=== PATIENT | male | born 1960 | race Caucasian/White ===

== ENCOUNTER 2019-07-06 09:54 | Inpatient (IN) | payer SELFPAY ==
--- NOTE | 2019-07-06 10:13 | ED Physician Documentation ---
General Adult - HISTORIAN Historian: patient - HPI Stated Complaint: cough and sore throat Chief Complaint: General Adult Onset: days ago Timing: still present Severity: moderate Further Comments: yes (Pt is a 58 yo male from [place] who is accompanying a cdl flatbed truck driver. He presents with c/o cough and sore throat for several days, and is sob. Pt has had some slight chest pain. Pt has COPD and CHF, and has been hospitalized in the past for 4 or 5 days at time due to exacerbations of CHF/COPD. Pt is on a number of meds, including Spirva. He has been out of his Lasix for 2 weeks. He says that he takes 40 mg daily with prn doses up to 3 total doses daily. Pt had an GA more than a decade ago. He says that he did not have a stent. Pt has an implanted defirillator, he says. He cannot give a good history of his cardiac issues.) - ROS CONST: weakness EYES/ENT: sore throat CVS/RESP: chest pain, shortness of breath, cough GI/: none MS/SKIN/LYMPH: none - PAST HX Past History: COPD, CHF, other (GA in (no stent); defibrillator) Surgeries/Procedures: other (implanted defibrillator) Allergies/Adverse Reactions: Allergies Allergy/AdvReac Type Severity Reaction Status Date / Time Penicillins Allergy Verified 07/06/19 10:46 Home Medications: Ambulatory Orders Medication Instructions Recorded Albuterol Sulfate [Proair Hfa] 8.5 gm IH TID 07/06/19 Aspirin [Roland] 325 mg PO DAILY 07/06/19 Atorvastatin Calcium 40 mg PO DAILY 07/06/19 Bupropion HCl [Bupropion Xl] 150 mg PO BID 07/06/19 Famotidine [Pepcid] 1 tab PO BID 07/06/19 Fluticasone Propion/Salmeterol 1 each INH DAILY 07/06/19 [Advair 250-50 Diskus] Metoprolol Tartrate [Lopressor] 25 mg PO DAILY 07/06/19 Potassium Chloride [Klor-Con 10] 1 tab PO DAILY 07/06/19 Spironolactone 0.5 tab PO DAILY 07/06/19 Tiotropium [place] [Spiriva] 1 inh INH DAILY 07/06/19 - SOCIAL HX Smoking History: cigarettes - FAMILY HX Family History: No (unk) - VITAL SIGNS Vital Signs: Vital Signs Temp Pulse Resp BP Pulse Ox 97.7 F 104 H 19 122/88 94 07/06/19 10:05 07/06/19 10:05 07/06/19 10:05 07/06/19 10:05 07/06/19 10:05 - REVIEWED ASSESSMENTS Nursing Assessment Reviewed: Yes Vitals Reviewed: Yes Progress - Progress Progress: ASA 324 mg po NS 500 cc IVF x1 Solu-medrol 125 mg IV Xopenex HFN x 1 Lasix 40 mg IV Admit to [facility], CHF/COPD exacerbation, r/o GA. - EKG/XRAY/CT EKG: NSR (HR=97; LAD; non-specific ST/T wave abnormality) XRAY: chest (IMPRESSION: Mild congestive heart failure.) General Adult Physical Exam - PHYSICAL EXAM GENERAL APPEARANCE: moderate distress EENT: pharynx normal NECK: normal inspection, supple RESPIRATORY: wheezes CVS: tachycardia ABDOMEN: soft, no organomegaly, normal bowel sounds BACK: normal inspection, no CVA tenderness SKIN: warm/dry, normal color EXTREMITIES: non-tender, normal range of motion, edema NEURO: oriented X3, motor nml, sensation nml Discharge Clincal Impression: CHF/COPD, Chest Pain Condition: Stable Disposition: ADMITTED INPATIENT Decision to Admit: [id number] Decision Time: 13:30
[2019-07-06] MEDS ORDERED: ASPIRIN 81 MG CHEW TAB PO ONE (10:15)
[2019-07-06] MEDS ORDERED: methylPREDNISolone SOD SUCC 125 MG/2 ML VIAL IVP ONE (10:31)
[2019-07-06 10:46] LABS: BASOPHILS % 0.4 % (0.0-1.5); NEUTROPHILS # 5.7 # k/uL (1.4-7.7)
--- NOTE | 2019-07-06 11:03 | Diagnostic Imaging Report ---
PATIENT MR#: [id number] PATIENT PATIENT NAME: ALONDRA BLANCHARD DATE OF : 1960 REFERRING PHYSICIAN: Chandler Jones EXAM DATE: 07/06/2019 ACCESSION NUMBER: [id number] EXAM DESCRIPTION: CHEST 2VIEW CHEST, TWO VIEWS CLINICAL INDICATION: CXR, SOA, PT STATES HX OF COPD, CHF, SMOKER (Hx) / Note time : 07/06/2019 10:54:22 AM User : Beatriz toro CXR, SOA, PT STATES HX OF COPD, CHF, SMOKER (DICOM Hx) (DICOM H x) FINDINGS: Heart is enlarged. Mild pulmonary vascular congestion. No consolidation or pneumothorax or pleural effusion. Left-sided single lead defibrillator. IMPRESSION: Mild congestive heart failure Read by: Dr. Chandler Barrios Transcribed by: Transcribed Date: Electronically signed by: Dr. Chandler Barrios Date signed: 07/06/2019 11:03:13 AM
[2019-07-06 11:10] LABS: eGFR (Non-African) > 60
[2019-07-06] MEDS ORDERED: FUROSEMIDE 40 MG/4 ML VIAL ONE (11:20)
[2019-07-06] MEDS ORDERED: FUROSEMIDE 40 MG/4 ML VIAL IVP ONE (11:22)
[2019-07-06] MEDS ORDERED: LEVALBUTEROL NEB 1.25 MG/3 ML VIAL.NEB NEB ONE (11:52)
[2019-07-06] MEDS ORDERED: 0.9 % SODIUM CHLORIDE 500 ML IV ONE (12:10)
[2019-07-06] MEDS ORDERED: IPRATROPIUM/ALBUTEROL SULFATE 3 ML AMPUL.NEB NEB PRN (13:41)
--- NOTE | 2019-07-06 14:37 | History and Physical Report ---
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 He presented to the ER with c/o cough and sore throat for several days with SOA. Pt has had some slight chest pain. Pt has COPD and CHF, and has been hospitalized in the past for 4 or 5 days at time due to exacerbations of CHF/COPD. Pt is on a number of meds, including Spirva. He has been out of his Lasix for 2 weeks. He says that he takes 40 mg daily with prn doses up to 3 total doses daily. Pt had an HI more than a decade ago. He says that he did not have a stent. Pt has an implanted defirillator, he says. He cannot give a good history of his cardiac issues. He was admitted through the ER. Patient sitting up to the side of the bed upon my arrival; appears to be in no acute distress; he is on home oxygen at 4L [place]; continues to smoke > 1PPD; he is not compliant with medications and does not seem too concerned about the risks. He states that he is feeling much better. We will continue with serial enzymes and if stable; will plan to discharge in the morning. - Past Medical History Cardiac: CHF, HTN, Hyperlipidemia Pulmonary: COPD, Other (Wears oxygen at 4 L/ Tobacco use) Gastrointestinal: GERD Psych: Depression - Past Surgical History Past Surgical History: Hernia Repair, Other (Right knee), Other (Defibrillator) - Past Social History Smoke: 1 pack per day Alcohol: None Drugs: None Lives: Friends Domestic Violence: Negative - Health Maintenance Health Maintenance: Cholesterol Influenza Vaccine: No Pneumonia Vaccine: No Review of Systems - Review of Systems Constitutional: negative: Fever, Chills Eyes: negative: vision change ENT: Throat Pain. negative: Ear Discharge, Nose Congestion Respiratory: Cough, Shortness of Breath, SOB with Excertion Cardiovascular: Chest Pain (gone) Gastrointestinal: negative: Nausea, Vomiting Genitourinary: negative: Dysuria Musculoskeletal: negative: Back Pain Skin: negative: Rash Neurological: Weakness - Medications/Allergies Allergies/Adverse Reactions: Allergies Allergy/AdvReac Type Severity Reaction Status Date / Time Penicillins Allergy Verified 07/06/19 10:46 Home Medications: Home Medications Albuterol Sulfate [Proair Hfa] 8.5 gm IH TID 07/06/19 Aspirin [Roland] 325 mg PO DAILY 07/06/19 Atorvastatin Calcium 40 mg PO DAILY 07/06/19 Bupropion HCl [Bupropion Xl] 150 mg PO BID 07/06/19 Famotidine [Pepcid] 1 tab PO BID 07/06/19 Fluticasone Propion/Salmeterol [Advair 250-50 Diskus] 1 each INH DAILY 07/06/19 Metoprolol Tartrate [Lopressor] 25 mg PO DAILY 07/06/19 Potassium Chloride [Klor-Con 10] 1 tab PO DAILY 07/06/19 Spironolactone 0.5 tab PO DAILY 07/06/19 Tiotropium [place] [Spiriva] 1 inh INH DAILY 07/06/19 Current Inpatient Medications: Current Inpatient Medications Albuterol/Ipratropium (Duoneb) 3 ml NEB Q4 PRN PRN Reason: Wheezing Stop: 08/05/19 13:40 Aspirin (Roland) 325 mg PO DAILY VANESSA Stop: 08/06/19 08:59 Atorvastatin Calcium (Lipitor) 40 mg PO HS VANESSA Stop: 08/05/19 20:59 Bupropion HCl (Wellbutrin Sr (12 Hour)) 150 mg PO BID VANESSA Stop: 08/05/19 20:59 Famotidine (Pepcid) mg PO BID VANESSA Stop: 08/05/19 20:59 Furosemide (Lasix) 40 mg IM BID VANESSA Stop: 08/05/19 20:59 Methylprednisolone Sodium Succinate (Solu-Medrol) 80 mg IVP Q8 VANESSA Stop: 08/05/19 20:59 Metoprolol Tartrate (Lopressor) 25 mg PO DAILY VANESSA Stop: 08/06/19 08:59 Potassium Chloride (Klor-Con 10) meq PO DAILY VANESSA Stop: 08/06/19 08:59 Spironolactone (Aldactone) mg PO DAILY VANESSA Stop: 08/06/19 08:59 Tiotropium [place] (Spiriva) 1 inh IH DAILY VANESSA Stop: 08/06/19 08:59 Exam - Exam Vital Signs: Vital Signs (72 hours) 07/06/19 07/06/19 07/06/19 10:05 10:15 10:45 Temperature 97.7 F Pulse Rate 100 H 103 H Pulse Rate [ 104 H Pulse ox] Pulse Rate [ Right] Respiratory 19 Rate Blood Pressure 122/88 [Right Arm] O2 Sat by Pulse 94 98 98 Oximetry 07/06/19 07/06/19 07/06/19 11: 11:30 12:00 Temperature Pulse Rate 102 H 100 H 102 H Pulse Rate [ Pulse ox] Pulse Rate [ Right] Respiratory Rate Blood Pressure [Right Arm] O2 Sat by Pulse 98 98 97 Oximetry 07/06/19 07/06/19 07/06/19 12:30 13:00 13:43 Temperature 98.1 F Pulse Rate 100 H 98 H Pulse Rate [ Pulse ox] Pulse Rate [ 95 H Right] Respiratory 20 Rate Blood Pressure 128/82 [Right Arm] O2 Sat by Pulse 96 94 96 Oximetry 07/06/19 13:48 Temperature Pulse Rate Pulse Rate [ 86 Pulse ox] Pulse Rate [ Right] Respiratory 19 Rate Blood Pressure 120/81 [Right Arm] O2 Sat by Pulse 96 Oximetry General: Alert, Oriented to Person, Oriented to Place, Oriented to Time, Cooperative, No acute distress HEENT: Atraumatic, PERRLA, Mouth Mucous membr. moist/[place], Nose Mucous membr. moist/[place] Neck: Normal Range of Motion Carotids: No bruit Lungs: Speaks full Sentences, Wheezes (right upper lobe expiratory), Decreased Air Movement (in the bases) Cardiovascular: Regular rate, Normal S1, Normal S2 Peripheral Edema: None Peripheral Pulses: 2+ Abdomen: Normal bowel sounds, Soft, No tenderness Integumentary: Normal, [place], Warm, Dry Extremities: No cyanosis, No edema, Normal pulses Neurological: Normal gait, Normal speech, Strength Equal Bilat Psych/Mental Status: Mental status NL, Mood NL, Appropriate Affect, Intact Judgment - Laboratory Results Laboratory Results: Laboratory Results 07/06/19 07/06/19 07/06/19 10:35 10:35 Unknown WBC 7.90 RBC 4.84 Hgb 16.0 Hct 47.9 MCV 99.0 MCH 33.0 MCHC 33.4 RDW 10.6 L Plt Count 226 Neut % (Auto) 72.6 Lymph % (Auto) 14.5 L [place] % (Auto) 10.5 Eos % (Auto) 2.0 Baso % (Auto) 0.4 Neut # (Auto) 5.7 Lymph # (Auto) 1.1 [place] # (Auto) 0.8 Eos # (Auto) 0.2 Baso # (Auto) 0.0 D-Dimer 817 H Sodium 142 Potassium 4.1 Chloride 106 Carbon Dioxide 29 Anion Gap 11.1 BUN 19 Creatinine 0.61 L Estimated Creat Clear 180 Est GFR ( Amer) > 60 Est GFR (Non-Af Amer) > 60 Glucose 130 H Calcium 8.9 Total Bilirubin 0.8 AST 29 ALT 18 Alkaline Phosphatase 72 Troponin I 0.030 NT-Pro-B Natriuret Pep 4395.6 H Total Protein 6.6 Albumin 4.0 Group A Strep Screen Negative Assessment/Plan - Assessment/Plan (1) COPD (chronic obstructive pulmonary disease) Status: Acute Current Visit: Yes Plan: Will continue to treat with nebulizers and solu-medrol; will continue with home inhalers (2) CHF (congestive heart failure) Status: Acute Current Visit: Yes Plan: Patient has not take Lasix in a week; IV lasix given in ER; will continue with IV lasix 40mg daily (3) Chest pain Status: Acute Current Visit: Yes Plan: Patient states chest pain is gone; we will continue with serial cardiac enzymes and EKG VTE Assessment - RISK FACTOR SCORE VTE RISK FACTOR SCORES: AGE 40-60 YEARS, SMOKER - RISK VTE MODERATE RISK: SCORE OF 2 (RISK PROXIMAL DVT 2-4%) PROPHYAXIS NEEDED (Will start lovenox daily)
[2019-07-06 14:47] VITALS: BMI 33.9
[2019-07-06] MEDS: NICOTINE 14mg PATCH.TD24 TD SCH (15:01)
[2019-07-06] MEDS: ENOXAPARIN SODIUM 60 MG/0.6 ML DISP.SYRIN SQ SCH (15:02)
[2019-07-06] MEDS ORDERED: MELATONIN 3 MG TABLET PO ONE (20:28)
[2019-07-06] MEDS: methylPREDNISolone SOD SUCC 40 MG/ML VIAL IVP SCH (20:53)
[2019-07-06] MEDS ORDERED: MELATONIN 3 MG TABLET PO PRN (20:57)
[2019-07-06] MEDS ORDERED: ATORVASTATIN CALCIUM 20 MG TABLET PO SCH (21:00)
[2019-07-06] MEDS ORDERED: FUROSEMIDE 40 MG/4 ML VIAL IM SCH (21:00)
[2019-07-06] MEDS: FAMOTIDINE 20 MG TABLET PO SCH (21:11)
[2019-07-06] MEDS: buPROPion 150 MG TAB.ER.12H PO SCH (21:11)
[2019-07-07] MEDS ORDERED: FUROSEMIDE 40 MG/4 ML VIAL ONE (05:13)
[2019-07-07] MEDS: methylPREDNISolone SOD SUCC 40 MG/ML VIAL IVP SCH (05:36)
[2019-07-07] MEDS ORDERED: FUROSEMIDE 40 MG/4 ML VIAL IVP SCH (07:00)
--- NOTE | 2019-07-07 07:13 | Diagnostic Imaging Report ---
PATIENT MR#: [id number] PATIENT PATIENT NAME: ALONDRA BLANCHARD DATE OF : 1960 REFERRING PHYSICIAN: Betty Whitt EXAM DATE: 07/07/2019 ACCESSION NUMBER: [id number] EXAM DESCRIPTION: CHEST 2VIEW Chest, PA and lateral History: Heart failure. Finding: Left subclavian venous pacemaker is present. There is a small right pleural effusion. There is mild atelectasis in the lung bases. The heart is enlarged. There is mild pulmonary vascular congestion. Since July 06, 2019, no significant change has occurred. Impression: Cardiomegaly and congestion. Small right effusion with mild bilateral lower lobe atelectasis. Read by: Dr. Gage Scott Transcribed by: Transcribed Date: Electronically signed by: Dr. Gage Scott Date signed: 07/07/2019 7:13:11 AM
[2019-07-07 07:57] LABS: BASOPHILS % 0.2 % (0.0-1.5); NEUTROPHILS # 8.1 # k/uL (1.4-7.7)
[2019-07-07] MEDS ORDERED: FLU VACC QUAD 2019-20/PF 60 MCG/0.5 ML SYRINGE IM ONE (07:59)
[2019-07-07 08:00] VITALS: BP 142/78
[2019-07-07] MEDS: NICOTINE 14mg PATCH.TD24 TD SCH (08:09)
[2019-07-07] MEDS: FAMOTIDINE 20 MG TABLET PO SCH (08:09)
[2019-07-07] MEDS: ENOXAPARIN SODIUM 60 MG/0.6 ML DISP.SYRIN SQ SCH (08:09)
[2019-07-07] MEDS: buPROPion 150 MG TAB.ER.12H PO SCH (08:10)
[2019-07-07 08:14] LABS: eGFR (Non-African) > 60
[2019-07-07 08:43] LABS: eGFR (Non-African) > 60
[2019-07-07] MEDS ORDERED: SPIRONOLACTONE 25 MG TABLET PO SCH (09:00)
[2019-07-07] MEDS ORDERED: METOPROLOL TARTRATE 25 MG TABLET PO SCH (09:00)
[2019-07-07] MEDS ORDERED: ASPIRIN 325 MG TABLET PO SCH (09:00)
[2019-07-07] MEDS ORDERED: TIOTROPIUM BROMIDE INHALER IH SCH (09:00)
[2019-07-07] MEDS ORDERED: POTASSIUM CHLORIDE 10 MEQ TABLET.ER PO SCH (09:00)
[2019-07-07] MEDS ORDERED: FLUTICASONE/SALMETEROL 250-50 INHALER IH SCH (09:00)
--- NOTE | 2019-07-07 09:02 | Discharge Summary ---
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 Pt has had some slight chest pain. Pt has COPD and CHF, and has been hospitalized in the past for 4 or 5 days at time due to exacerbations of CHF/COPD. Pt is on a number of meds, including Spirva. He has been out of his Lasix for 2 weeks. He says that he takes 40 mg daily with prn doses up to 3 total doses daily. Pt had an AL more than a decade ago. He says that he did not have a stent. Pt has an implanted defirillator, he says. He cannot give a good history of his cardiac issues. He was admitted through the ER. Patient sitting up to the side of the bed upon my arrival; appears to be in no acute distress; he is on home oxygen at 4L [place]; continues to smoke > 1PPD; he is not compliant with medications and does not seem too concerned about the risks. He states that he is feeling much better. We will continue with serial enzymes and if stable; will plan to discharge in the morning. Condition at Discharge: Stable Home Medications: Ambulatory Orders Medication Instructions Recorded Albuterol Sulfate [Proair Hfa] 8.5 gm IH TID 07/06/19 Aspirin [Roland] 325 mg PO DAILY 07/06/19 Atorvastatin Calcium 40 mg PO DAILY 07/06/19 Bupropion HCl [Bupropion Xl] 150 mg PO BID 07/06/19 Famotidine [Pepcid] 1 tab PO BID 07/06/19 Fluticasone Propion/Salmeterol 1 each INH DAILY 07/06/19 [Advair 250-50 Diskus] Metoprolol Tartrate [Lopressor] 25 mg PO DAILY 07/06/19 Potassium Chloride [Klor-Con 10] 1 tab PO DAILY 07/06/19 Spironolactone 0.5 tab PO DAILY 07/06/19 Tiotropium [place] [Spiriva] 1 inh INH DAILY 07/06/19 Consultations this Visit: None Procedures this Visit: None Allergies/Adverse Reactions: Allergies Allergy/AdvReac Type Severity Reaction Status Date / Time Penicillins Allergy Verified 07/06/19 10:46 Patient Problems: Current Active Problems Problem Status Onset CHF (congestive heart failure) Acute COPD (chronic obstructive pulmonary disease) Acute Chest pain Acute Discharge Summary: Patient sitting up to the side of the bed this morning eating breakfast; states he is feeling much better; denies any chest pain; denies shortness of breath; cardiac enzymes are negative; chest xray unchanged; patient would like to go home today; they are headed to [place]. He states that he has plenty of meds to get home with the exception of Lasix in which he takes 40 mg daily. (will write script to take with patient for lasix 40mg daily #30). Discussed no smoking especially while on oxygen (he states "not going to quit")- he will f/u with PCP when he gets home. Hospital Course: Serial cardiac enzymes, oxygen, telemetry, IV lasix - Final Diagnosis (1) COPD (chronic obstructive pulmonary disease) Problems: Stable; will continue with home inhalers; refuses to stop smoking; has plenty of portable oxygen Right or Left: Right (2) CHF (congestive heart failure) Problems: BNP decreasing; discussed decreasing sodium (he states he cant do that; loves salt)- but states he will fill his script for lasix Right or Left: Right (3) Chest pain Problems: Stable- no CP Right or Left: Right
== END 2019-07-07 08:20 | disposition home or self-care (01) | DRG 192 ==
LOC: ED 09:54 → SOUTH 13:33
PROVIDERS: ADMIT Nurse Practitioner Family; ATTEND Nurse Practitioner Family
DX: J44.9 Chronic obstructive pulmonary disease, unspecified (principal); I11.0 Hypertensive heart disease with heart failure; I50.9 Heart failure, unspecified; F17.210 Nicotine dependence, cigarettes, uncomplicated; E78.5 Hyperlipidemia, unspecified; K21.9 Gastro-esophageal reflux disease without esophagitis; F32.9 Major depressive disorder, single episode, unspecified; I25.2 Old myocardial infarction; Z95.810 Presence of automatic (implantable) cardiac defibrillator; Z88.0 Allergy status to penicillin; Z99.81 Dependence on supplemental oxygen; Z91.14 Patient's other noncompliance with medication regimen; Z79.899 Other long term (current) drug therapy; Z79.82 Long term (current) use of aspirin; Z79.51 Long term (current) use of inhaled steroids; Z71.6 Tobacco abuse counseling
CPT/HCPCS: 80053; 83880; 84484; 85025; 85379; 87070; 87880; 93005; 99222; 99238; J1650; J1940; J2920; J2930; J7060; J7614; A9270; J1030; S1016